=== PATIENT | male | born 1950 | race Caucasian/White ===

== ENCOUNTER 2018-01-13 14:07 | Emergency (ER) | payer SELFPAY ==
[~2018-01-13] VITALS: Ht 167.6 cm; Wt 60.0 kg
[2018-01-13 14:09] VITALS: BP 101/55; PULSE 55; RESP 18; TEMP 97.2; O2SAT 100
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
[2018-01-13] MEDS ORDERED: ACETAMINOPHEN/HYDROcodone 325 MG/5 MG TAB PO ONE (14:30)
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
[2018-01-13 15:28] VITALS: RESP 20
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
[2018-01-13] MEDS ORDERED: IBUP-232 PO (17:32)
== END 2018-01-13 18:08 | disposition home or self-care (01) ==
LOC: NEPK 14:07
DX: M25.421 Effusion, right elbow (principal)
CPT/HCPCS: 73080; 73200; 99284